=== PATIENT | male | born 1995 | race African-American/Black ===

== ENCOUNTER 2018-03-16 15:40 | Emergency (ER) | payer BC ==
[~2018-03-16] VITALS: Ht 162.6 cm; Wt 68.9 kg
[~2018-03-16 15:40] MED LIST: RTPRO
[2018-03-16 15:44] VITALS: BP 152/86; PULSE 100; RESP 18; Ht 162.6 cm; Wt 68.9 kg
--- NOTE | 2018-03-16 17:01 | ERD ---
ER Documentation Chief Complaint Chief Complaint ALFORD, hit head on mirror no KO, speaking full sentences HPI 22-year-old male with no prior medical history presents 2 hours post head injury. Patient states that he never fell on his head. Patient denies loss of consciousness, amnesia, decreased level of consciousness, rhinorrhea, bruising or lacerations to skull, vomiting, or current headache. In addition patient was concerned that he might have diabetes, father states that diabetes runs in the family. Patient states that sometimes he feels shaky and would like to get his blood sugar checked. Denies past medical history. Denies allergies. Denies medications. Denies surgeries. Denies alcohol, tobacco, drug use. Not up-to- date on tetanus. ROS All systems reviewed and are negative except as per history of present illness. Medications Home Meds Active Scripts Acetaminophen* (Tylophen*) 500 Mg Capsule, 2 CAP PO Q8H PRN for PAIN, #20 CAP Prov:VENKAT ORTIZ 03/16/18 Reported Medications Albuterol Sulfate* (Proventil* Neb) 3 Ml Nebu 04/10/10 Allergies Allergies: Coded Allergies: No Known Drug Allergies (Verified Allergy, Mild, 04/10/10) PMhx/Soc Medical and Surgical Hx: pt denies Surgical Hx History of Surgery: No Anesthesia Reaction: No Hx Neurological Disorder: No Hx Respiratory Disorders: Yes (ASTHMA) Hx Cardiac Disorders: No Hx Psychiatric Problems: No Hx Miscellaneous Medical Probl: No Hx Alcohol Use: No Hx Substance Use: No Hx Tobacco Use: No Smoking Status: Never smoker FmHx Family History: diabetes Physical Exam Vitals Vital Signs Date Temp Pulse Resp B/P (MAP) Pulse Ox O2 O2 Flow FiO2 Time Delivery Rate 03/16/18 99.2 100 18 152/86 100 15:44 (108) Physical Exam General: Well developed, well nourished. No acute distress. Head: Small 1 cm abrasion located on upper right forehead. No signs of infection or bleeding. No raccoon eyes, toledo sign, or other signs of skull fracture. Eyes: PERRLA, EOMs intact. Ears: No hematotympanum. Nose: No rhinorrhea Neck: Full ROM, no midline tenderness. Heart: RR w/o murmur, rubs, or gallops. Lungs: Clear to auscultation bilaterally w/o wheezes, crackles, rhonchi. Symmetric rise and fall. Equal breath sounds. Extremities: 5/5 strength and full ROM of upper and lower extremeties bilaterally. Neuro: CN II through XII intact. Rapid alternating movement intact. No cerebellar or gait deficits. Strength and sensation intact. Alert and oriented x3. Psych: Normal mood and affect. Result Diagram: 03/16/18 1659 Results 24 hrs Laboratory Tests Test 03/16/18 16:59 Sodium Level 139 mmol/L Potassium Level 4.1 mmol/L Chloride Level 99 mmol/L Carbon Dioxide Level 31 mmol/L Anion Gap 9 Blood Urea Nitrogen 15 mg/dl Creatinine 1.02 mg/dl Est Glomerular Filtrat Rate mL/min > 60 mL/min Glucose Level 94 mg/dl Hemoglobin A1c 5.0 % Calcium Level 9.6 mg/dl Total Bilirubin 0.4 mg/dl Direct Bilirubin 0.00 mg/dl Indirect Bilirubin 0.4 mg/dl Aspartate Amino Transf (AST/SGOT) 21 IU/L Alanine Aminotransferase (ALT/SGPT) 29 IU/L Alkaline Phosphatase 64 IU/L Total Protein 8.0 g/dl Albumin 4.7 g/dl Globulin 3.30 g/dl Albumin/Globulin Ratio 1.42 Current Medications Medications Dose Sig/Nik Start Time Status Last (Trade) Ordered Route PRN Stop Time Admin Dose Reason Admin Diphtheria/ 0.5 ml ONCE ONCE 03/16/18 DC 03/16/18 Tetanus/Acell IM* 17:30 17:40 Pertussis 03/16/18 17:31 (Adacel) Procedures/MDM 22-year-old male with no prior medical history presents 2 hours post head injury. Patient states that he never fell on his head. Patient denies loss of consciousness, amnesia, decreased level of consciousness, rhinorrhea, bruising or lacerations to skull, vomiting, or current headache. In addition patient was concerned that he might have diabetes, father states that diabetes runs in the family. Patient states that sometimes he feels shaky and would like to get his blood sugar checked. I have low suspicion for intracranial bleed. In addition patient does not meet Kelly CT score for head CT. Discussed the risk and benefits of getting a head CT with patient, patient declined getting CT. Gave patient and parents strict discharge precautions. Patient stated that her primary care doctor wanted him to have his ear diabetes patient sometimes feels shaky. Therefore decision was made to take an A1c as well as a CMP. All results within normal limits. I told them that if patient starts having any vomiting, nausea, lethargy, decreased level of consciousness, amnesia, or headache, return to ER immediately. Low suspicion for diabetes based on A1c and CMP. Patient discharged with strict ER precautions. Patient advised to follow- up with PMD. Departure Diagnosis: Primary Impression: Acute head injury without loss of consciousness Encounter type: initial encounter Qualified Codes: S09.90XA - Unspecified injury of head, initial encounter Condition: Stable VENKAT ORTIZ Mar 16, 2018 17:01
[2018-03-16] MEDS ORDERED: ACET500C5 PO (17:03)
[2018-03-16] MEDS ORDERED: DIPHTH/TET/ACEL PERTUSS (ADULT) 0.5 ML VIAL IM* ONE (17:30)
== END 2018-03-16 17:52 | disposition home or self-care (01) ==
LOC: FTE 15:40
DX: S09.90XA Unspecified injury of head, initial encounter (principal); J45.909 Unspecified asthma, uncomplicated; W22.8XXA Striking against or struck by other objects, initial encounter; Y92.9 Unspecified place or not applicable; Z23 Encounter for immunization
CPT/HCPCS: 36415; 80053; 83036; 90471; 90715; Z7502